=== PATIENT | male | born 1940 | race Caucasian/White ===

== ENCOUNTER 2022-06-22 13:45 | Inpatient (IN) ==
[2022-06-22] MEDS ORDERED: MORPHINE 2 MG/1 ML SYRINGE IV STA ×2 (16:52→19:19)
[2022-06-22] MEDS ORDERED: ONDANSETRON 4 MG/2 ML VIAL IV STA (16:52)
[2022-06-22] MEDS ORDERED: SODIUM CHLORIDE 0.9% 1,000 ML IV STA (16:52)
[2022-06-22 17:46] LABS: Basophils % 0.1 % (0.0-0.8); Hematocrit 43.9 VOL% (42.0-52.0); Hemoglobin 14.6 GM/DL (14.0-18.0); Immature Granulocytes % 0.5 %; Immature Granulocytes Absolute 0.07 #; Lymphocytes # 0.7 10*3/uL (1.4-4.0); Lymphocytes % 4.7 % (21.2-54.2); Mean Corpuscular HGB Conc 33.3 GM/DL (32-36); Mean Corpuscular Volume 91.6 FL (87-102); Mean Platelet Volume 9.4 FL (9.6-12.0); Monocytes # 1.7 10*3/uL (0.11-0.8); Monocytes % 11.2 % (1.7-12.7); Neutrophils % 83.5 % (38.7-73.9); Platelet Count 260 T/CUMM (130-400); Red Blood Count 4.79 MC/CUMM (3.8-5.5); Red Cell Distribution Width 12.7 % (9.3-17.3); White Blood Count 14.8 T/CUMM (4-12)
[2022-06-22 18:07] LABS: Albumin 3.5 G/DL (3.4-5.0); Bilirubin,Total 3.9 MG/DL (0.20-1.00); Calcium 9.5 MG/DL (8.5-10.1); Osmolality,Calculated 272.4 MOS/KG (273-304); Potassium 4.4 MMOL/L (3.5-5.1); Total Protein 7.1 G/DL (6.4-8.2)
[2022-06-22 18:08] LABS: Lymphocytes 5 % (20-55); Platelet Estimate Normal
[2022-06-22 18:09] LABS: Total Cells Counted 100
[2022-06-22 19:01] LABS: Blood, Urine Negative (Negative); Glucose,Urine (UA) Negative (Negative); Hyaline Casts,Urine 1 /LPF (0-3); Ketones,Urine 5 mg/dL (Negative); Mucus,Urine Occasional /LPF (Occasional); Nitrite,Urine Negative (Negative); Protein,Urine 30 mg/dL (Negative); RBC,Urine 2 /HPF (0-4); Squamous Epithelial Cell,Urine Occasional /HPF (0-10); Urine Appearance Slightly Hazy (Clear); Urine Color Amber (Yellow); Urine Specific Gravity 1.016 (1.001-1.035)
[2022-06-22 19:02] LABS: Bilirubin,Urine Small mg/dL (Negative)
[2022-06-22] MEDS ORDERED: hydrALAZINE 20 MG/1 ML VIAL IV PRN (21:14)
[2022-06-22] MEDS ORDERED: MORPHINE 2 MG/1 ML SYRINGE IV PRN (21:14)
[2022-06-22] MEDS ORDERED: LACTULOSE 20 GM/30 ML UDCUP PO PRN (21:14)
[2022-06-22] MEDS ORDERED: NITROGLYCERIN SL 0.4 MG TABLET SL PRN (21:23)
[2022-06-22] MEDS ORDERED: SODIUM CHLORIDE 0.9% 1,000 ML IV SCH (21:30)
[2022-06-22] MEDS ORDERED: ENOXAPARIN 40 MG/0.4 ML SYRINGE SUBCUT SCH (22:00)
[2022-06-22] MEDS: levETIRAcetam 500 MG TABLET PO SCH (22:59)
[2022-06-22] MEDS: PHENobarbital 30 MG TABLET PO SCH (23:45)
[2022-06-23 04:44] LABS: Basophils % 0.2 % (0.0-0.8); Hematocrit 38.7 VOL% (42.0-52.0); Immature Granulocytes % 0.3 %; Immature Granulocytes Absolute 0.03 #; Lymphocytes # 1.7 10*3/uL (1.4-4.0); Lymphocytes % 16.6 % (21.2-54.2); Mean Corpuscular HGB Conc 33.6 GM/DL (32-36); Mean Corpuscular Volume 91.1 FL (87-102); Mean Platelet Volume 9.2 FL (9.6-12.0); Monocytes # 1.7 10*3/uL (0.11-0.8); Monocytes % 16.8 % (1.7-12.7); Neutrophils % 66.1 % (38.7-73.9); Platelet Count 212 T/CUMM (130-400); Red Blood Count 4.25 MC/CUMM (3.8-5.5); White Blood Count 10.1 T/CUMM (4-12)
[2022-06-23 05:01] LABS: Albumin 2.6 G/DL (3.4-5.0); Bilirubin,Total 4.1 MG/DL (0.20-1.00); Calcium 8.8 MG/DL (8.5-10.1); Osmolality,Calculated 273.8 MOS/KG (273-304); Potassium 3.9 MMOL/L (3.5-5.1); Risk Ratio 2.2; Total Protein 6.1 G/DL (6.4-8.2); VLDL Cholesterol 11.2 MG/DL
[2022-06-23 06:24] LABS: Lymphocytes 24 % (20-55); Platelet Estimate Normal; Total Cells Counted 100
[2022-06-23] MEDS: ASPIRIN EC 81 MG TABLET PO SCH (08:44)
[2022-06-23] MEDS: CITALOPRAM 40 MG TABLET PO SCH (08:44)
[2022-06-23] MEDS: MULTIVITAMIN (CENTRUM) TABLET PO SCH (08:44)
[2022-06-23] MEDS: ATORVASTATIN 40 MG TABLET PO SCH (08:45)
[2022-06-23] MEDS: MAGNESIUM OXIDE 400 MG TABLET PO SCH (08:45)
[2022-06-23] MEDS: OMEGA 3 ACID ETHYL ESTERS 1 GM CAPSULE PO SCH (08:45)
[2022-06-23] MEDS: levETIRAcetam 500 MG TABLET PO SCH ×2 (08:45→21:06)
[2022-06-23] MEDS: FOLIC ACID 1 MG TABLET PO SCH ×2 (08:45→21:06)
[2022-06-23] MEDS: lisinopriL 10 MG TABLET PO SCH (08:46)
[2022-06-23] MEDS: CHOLECALCIFEROL 1,000 UNIT TABLET PO SCH (08:46)
[2022-06-23] MEDS: PANTOPRAZOLE 40 MG TABLET PO SCH (08:46)
[2022-06-23] MEDS ORDERED: levETIRAcetam 500 MG TABLET PO SCH (09:00)
[2022-06-23] MEDS ORDERED: HYDROmorphone 1 MG/1 ML SYRINGE IV PRN (09:18)
[2022-06-23] MEDS: INSULIN LISPRO 100 UNIT/ML SUBCUT SCH ×4 (10:09→21:11)
[2022-06-23] MEDS: PHENobarbital 30 MG TABLET PO SCH ×5 (10:34→21:06)
[2022-06-23] MEDS: POTASSIUM CHLORIDE INJ 10 MEQ in LACTATED RINGERS 1,000 ML IV SCH ×2 (11:21→17:26)
[2022-06-23] MEDS: PIPERACILLIN/TAZOBACTAM 3,375 MG in SODIUM CHLORIDE 0.9% 100 ML IV SCH ×2 (12:51→21:06)
[2022-06-23] MEDS: LACTULOSE 20 GM/30 ML UDCUP PO SCH (21:07)
[2022-06-24] MEDS: POTASSIUM CHLORIDE INJ 10 MEQ in LACTATED RINGERS 1,000 ML IV SCH ×2 (03:22→17:54)
[2022-06-24] MEDS: PIPERACILLIN/TAZOBACTAM 3,375 MG in SODIUM CHLORIDE 0.9% 100 ML IV SCH ×3 (04:10→20:52)
[2022-06-24 06:25] LABS: Basophils % 0.2 % (0.0-0.8); Hematocrit 42.6 VOL% (42.0-52.0); Hemoglobin 13.7 GM/DL (14.0-18.0); Immature Granulocytes % 0.3 %; Immature Granulocytes Absolute 0.03 #; Lymphocytes # 1.8 10*3/uL (1.4-4.0); Lymphocytes % 19.3 % (21.2-54.2); Mean Corpuscular HGB Conc 32.2 GM/DL (32-36); Mean Corpuscular Volume 92.8 FL (87-102); Mean Platelet Volume 9.6 FL (9.6-12.0); Monocytes % 11.1 % (1.7-12.7); Neutrophils % 69.1 % (38.7-73.9); Platelet Count 240 T/CUMM (130-400); Red Blood Count 4.59 MC/CUMM (3.8-5.5); Red Cell Distribution Width 12.9 % (9.3-17.3); White Blood Count 9.4 T/CUMM (4-12)
[2022-06-24 06:38] LABS: Albumin 2.8 G/DL (3.4-5.0); Bilirubin,Total 4.3 MG/DL (0.20-1.00); Calcium 9.2 MG/DL (8.5-10.1); Osmolality,Calculated 273.7 MOS/KG (273-304); Potassium 4.2 MMOL/L (3.5-5.1); Total Protein 6.7 G/DL (6.4-8.2)
[2022-06-24] MEDS: INSULIN LISPRO 100 UNIT/ML SUBCUT SCH ×4 (08:02→20:53)
[2022-06-24] MEDS: levETIRAcetam 500 MG TABLET PO SCH ×2 (10:13→20:52)
[2022-06-24] MEDS: METOPROLOL SUCCINATE XL 25 MG TABLET PO SCH (10:13)
[2022-06-24] MEDS: lisinopriL 10 MG TABLET PO SCH (10:14)
[2022-06-24] MEDS: CITALOPRAM 40 MG TABLET PO SCH (10:14)
[2022-06-24] MEDS: PHENobarbital 30 MG TABLET PO SCH ×4 (10:14→20:51)
[2022-06-24] MEDS: LACTULOSE 20 GM/30 ML UDCUP PO SCH ×2 (11:14→20:51)
[2022-06-24] MEDS: FOLIC ACID 1 MG TABLET PO SCH ×2 (11:14→20:52)
[2022-06-24] MEDS: MULTIVITAMIN (CENTRUM) TABLET PO SCH (11:14)
[2022-06-24] MEDS: ASPIRIN EC 81 MG TABLET PO SCH (11:14)
[2022-06-24] MEDS: OMEGA 3 ACID ETHYL ESTERS 1 GM CAPSULE PO SCH (11:15)
[2022-06-24] MEDS: PANTOPRAZOLE 40 MG TABLET PO SCH (11:15)
[2022-06-24] MEDS: CHOLECALCIFEROL 1,000 UNIT TABLET PO SCH (11:15)
[2022-06-24] MEDS: ATORVASTATIN 40 MG TABLET PO SCH (11:15)
[2022-06-24] MEDS: MAGNESIUM OXIDE 400 MG TABLET PO SCH (11:15)
[2022-06-25] MEDS: PIPERACILLIN/TAZOBACTAM 3,375 MG in SODIUM CHLORIDE 0.9% 100 ML IV SCH ×3 (05:06→20:57)
[2022-06-25 06:56] LABS: Basophils % 0.1 % (0.0-0.8); Hematocrit 39.7 VOL% (42.0-52.0); Hemoglobin 13.2 GM/DL (14.0-18.0); Immature Granulocytes % 0.4 %; Immature Granulocytes Absolute 0.03 #; Lymphocytes # 1.6 10*3/uL (1.4-4.0); Lymphocytes % 19.9 % (21.2-54.2); Mean Corpuscular HGB Conc 33.2 GM/DL (32-36); Mean Corpuscular Volume 92.5 FL (87-102); Mean Platelet Volume 9.5 FL (9.6-12.0); Monocytes # 0.9 10*3/uL (0.11-0.8); Monocytes % 10.7 % (1.7-12.7); Neutrophils % 68.9 % (38.7-73.9); Platelet Count 235 T/CUMM (130-400); Red Blood Count 4.29 MC/CUMM (3.8-5.5); Red Cell Distribution Width 12.9 % (9.3-17.3)
[2022-06-25 07:04] LABS: PT Patient Result 11.5 SECS (10.1-12.1)
[2022-06-25 07:18] LABS: Albumin 2.6 G/DL (3.4-5.0); Bilirubin,Total 2.1 MG/DL (0.20-1.00); Osmolality,Calculated 273.7 MOS/KG (273-304); Potassium 3.7 MMOL/L (3.5-5.1); Total Protein 6.6 G/DL (6.4-8.2)
[2022-06-25] MEDS ORDERED: INDOMETHACIN SUPP 50 MG SUPP RECTAL ONE (08:00)
[2022-06-25] MEDS: INSULIN LISPRO 100 UNIT/ML SUBCUT SCH ×4 (08:17→21:01)
[2022-06-25] MEDS ORDERED: fentaNYL 100 MCG/2 ML VIAL ONE (08:26)
[2022-06-25] MEDS: LACTATED RINGERS 1,000 ML IV SCH (08:41)
[2022-06-25] MEDS ORDERED: ePHEDrine 50 MG/ML VIAL ONE (09:41)
[2022-06-25] MEDS ORDERED: ROCURONIUM 50 MG/5 ML VIAL IV ONE (09:48)
[2022-06-25] MEDS ORDERED: propofoL 200 MG/20 ML VIAL IV ONE (09:48)
[2022-06-25] MEDS ORDERED: LIDOCAINE 2% 5 ML VIAL ONE (09:48)
[2022-06-25] MEDS ORDERED: SUCCINYLCHOLINE 200 MG/10 ML VIAL ONE (09:48)
[2022-06-25] MEDS ORDERED: SEVOFLURANE 1 UNIT/15 MINUTE INH ONE (09:48)
[2022-06-25] MEDS ORDERED: PHENYLEPHRINE 1 MG/10 ML SYRINGE IV ONE (09:48)
[2022-06-25] MEDS ORDERED: NEOSTIGMINE 10 MG/10 ML VIAL ONE (10:03)
[2022-06-25] MEDS ORDERED: GLYCOPYRROLATE 0.4 MG/2 ML VIAL ONE ×2 (10:09→10:41)
[2022-06-25] MEDS: levETIRAcetam 500 MG TABLET PO SCH ×2 (10:59→20:56)
[2022-06-25] MEDS: PHENobarbital 30 MG TABLET PO SCH ×5 (10:59→20:56)
[2022-06-25] MEDS: LACTULOSE 20 GM/30 ML UDCUP PO SCH ×2 (10:59→20:55)
[2022-06-25] MEDS: FOLIC ACID 1 MG TABLET PO SCH ×2 (10:59→20:56)
[2022-06-25] MEDS: OMEGA 3 ACID ETHYL ESTERS 1 GM CAPSULE PO SCH (11:29)
[2022-06-25] MEDS: MULTIVITAMIN (CENTRUM) TABLET PO SCH (11:29)
[2022-06-25] MEDS: PANTOPRAZOLE 40 MG TABLET PO SCH (11:29)
[2022-06-25] MEDS: CITALOPRAM 40 MG TABLET PO SCH (11:29)
[2022-06-25] MEDS: lisinopriL 10 MG TABLET PO SCH (11:29)
[2022-06-25] MEDS: ATORVASTATIN 40 MG TABLET PO SCH (11:29)
[2022-06-25] MEDS: ASPIRIN EC 81 MG TABLET PO SCH (11:29)
[2022-06-25] MEDS: MAGNESIUM OXIDE 400 MG TABLET PO SCH (11:29)
[2022-06-25] MEDS: CHOLECALCIFEROL 1,000 UNIT TABLET PO SCH (11:29)
[2022-06-25] MEDS ORDERED: GLUCAGON 1 MG VIAL IM PRN (11:47)
[2022-06-25] MEDS ORDERED: DEXTROSE 10% 250 ML BAG IV PRN (11:47)
[2022-06-26 04:41] LABS: Basophils % 0.4 % (0.0-0.8); Hematocrit 39.8 VOL% (42.0-52.0); Hemoglobin 13.6 GM/DL (14.0-18.0); Immature Granulocytes % 0.3 %; Immature Granulocytes Absolute 0.02 #; Lymphocytes # 1.7 10*3/uL (1.4-4.0); Lymphocytes % 22.9 % (21.2-54.2); Mean Corpuscular HGB Conc 34.2 GM/DL (32-36); Mean Corpuscular Volume 92.3 FL (87-102); Mean Platelet Volume 9.7 FL (9.6-12.0); Monocytes # 0.9 10*3/uL (0.11-0.8); Monocytes % 11.4 % (1.7-12.7); Platelet Count 253 T/CUMM (130-400); Red Blood Count 4.31 MC/CUMM (3.8-5.5); Red Cell Distribution Width 12.7 % (9.3-17.3); White Blood Count 7.5 T/CUMM (4-12)
[2022-06-26 05:04] LABS: Albumin 2.5 G/DL (3.4-5.0); Bilirubin,Total 1.2 MG/DL (0.20-1.00); Calcium 8.5 MG/DL (8.5-10.1); Osmolality,Calculated 283.1 MOS/KG (273-304); Total Protein 6.1 G/DL (6.4-8.2)
[2022-06-26] MEDS: PIPERACILLIN/TAZOBACTAM 3,375 MG in SODIUM CHLORIDE 0.9% 100 ML IV SCH ×2 (05:25→16:18)
[2022-06-26] MEDS ORDERED: INDOCYANINE GREEN 25 MG VIAL IV ONE (06:00)
[2022-06-26] MEDS: LACTATED RINGERS 1,000 ML IV SCH (07:10)
[2022-06-26] MEDS: PHENobarbital 30 MG TABLET PO SCH ×4 (08:28→21:01)
[2022-06-26] MEDS: levETIRAcetam 500 MG TABLET PO SCH ×2 (08:28→21:01)
[2022-06-26] MEDS: METOPROLOL SUCCINATE XL 25 MG TABLET PO SCH (08:29)
[2022-06-26] MEDS: INSULIN LISPRO 100 UNIT/ML SUBCUT SCH ×4 (08:30→21:00)
[2022-06-26] MEDS ORDERED: fentaNYL 100 MCG/2 ML VIAL ONE ×3 (09:17→11:21)
[2022-06-26] MEDS ORDERED: ePHEDrine 50 MG/ML VIAL ONE (10:07)
[2022-06-26] MEDS ORDERED: SEVOFLURANE 1 UNIT/15 MINUTE INH ONE (12:11)
[2022-06-26] MEDS ORDERED: propofoL 200 MG/20 ML VIAL IV ONE (12:11)
[2022-06-26] MEDS ORDERED: ONDANSETRON 4 MG/2 ML VIAL ONE (12:11)
[2022-06-26] MEDS ORDERED: ROCURONIUM 50 MG/5 ML VIAL IV ONE (12:11)
[2022-06-26] MEDS ORDERED: LIDOCAINE 2% 5 ML VIAL ONE (12:11)
[2022-06-26] MEDS ORDERED: LACTATED RINGERS 1,000 ML IV ONE (12:12)
[2022-06-26] MEDS ORDERED: SUGAMMADEX 200 MG/2 ML VIAL IV ONE (12:14)
[2022-06-26] MEDS ORDERED: METOPROLOL TARTRATE 5 MG/5 ML VIAL IV ONE (12:22)
[2022-06-26] MEDS: CITALOPRAM 40 MG TABLET PO SCH (12:40)
[2022-06-26] MEDS: ASPIRIN EC 81 MG TABLET PO SCH (12:40)
[2022-06-26] MEDS: MULTIVITAMIN (CENTRUM) TABLET PO SCH (12:40)
[2022-06-26] MEDS: LACTULOSE 20 GM/30 ML UDCUP PO SCH ×2 (12:40→21:01)
[2022-06-26] MEDS: FOLIC ACID 1 MG TABLET PO SCH ×2 (12:41→21:01)
[2022-06-26] MEDS: ATORVASTATIN 40 MG TABLET PO SCH (12:41)
[2022-06-26] MEDS: OMEGA 3 ACID ETHYL ESTERS 1 GM CAPSULE PO SCH (12:41)
[2022-06-26] MEDS: PANTOPRAZOLE 40 MG TABLET PO SCH (12:42)
[2022-06-26] MEDS: CHOLECALCIFEROL 1,000 UNIT TABLET PO SCH (12:42)
[2022-06-26] MEDS: MAGNESIUM OXIDE 400 MG TABLET PO SCH (12:42)
[2022-06-26] MEDS: lisinopriL 10 MG TABLET PO SCH (12:42)
[2022-06-26] MEDS: HYDROmorphone 1 MG/1 ML SYRINGE IV PRN ×3 (12:55→17:24)
[2022-06-26] MEDS: ONDANSETRON 4 MG/2 ML VIAL IV PRN ×2 (12:56→17:21)
[2022-06-26] MEDS ORDERED: ROPIVACAINE 0.5% 30 ML VIAL ONE (13:04)
[2022-06-26] MEDS ORDERED: LIDOCAINE 50 MG/5 ML SYRINGE ONE (13:08)
[2022-06-26] MEDS ORDERED: ONDANSETRON 4 MG/2 ML VIAL IV PRN (13:09)
[2022-06-26] MEDS ORDERED: LACTATED RINGERS 1,000 ML IV SCH (13:30)
[2022-06-26] MEDS ORDERED: MEPERIDINE 25 MG/1 ML VIAL ONE (13:49)
[2022-06-26] MEDS ORDERED: MEPERIDINE 25 MG/1 ML VIAL IV PRN (13:52)
[2022-06-27] MEDS: PIPERACILLIN/TAZOBACTAM 3,375 MG in SODIUM CHLORIDE 0.9% 100 ML IV SCH ×3 (01:19→16:11)
[2022-06-27] MEDS: HYDROmorphone 1 MG/1 ML SYRINGE IV PRN ×3 (06:01→14:29)
[2022-06-27 08:07] LABS: Basophils % 0.2 % (0.0-0.8); Hemoglobin 12.7 GM/DL (14.0-18.0); Immature Granulocytes % 0.4 %; Immature Granulocytes Absolute 0.04 #; Lymphocytes # 1.7 10*3/uL (1.4-4.0); Mean Corpuscular HGB Conc 32.6 GM/DL (32-36); Mean Corpuscular Volume 94.2 FL (87-102); Mean Platelet Volume 9.6 FL (9.6-12.0); Monocytes # 1.9 10*3/uL (0.11-0.8); Monocytes % 17.4 % (1.7-12.7); Platelet Count 285 T/CUMM (130-400); Red Blood Count 4.14 MC/CUMM (3.8-5.5); Red Cell Distribution Width 13.2 % (9.3-17.3); White Blood Count 10.7 T/CUMM (4-12)
[2022-06-27 08:25] LABS: Albumin 2.5 G/DL (3.4-5.0); Bilirubin,Total 1.3 MG/DL (0.20-1.00); Calcium 8.8 MG/DL (8.5-10.1); Osmolality,Calculated 285.3 MOS/KG (273-304); Potassium 4.7 MMOL/L (3.5-5.1); Total Protein 6.3 G/DL (6.4-8.2)
[2022-06-27 08:27] LABS: Atypical Lymphocytes Few; Hypochromia Slight; Lymphocytes 18 % (20-55); Total Cells Counted 100
[2022-06-27 08:28] LABS: Microcytosis Slight
[2022-06-27] MEDS: INSULIN LISPRO 100 UNIT/ML SUBCUT SCH ×4 (09:02→21:51)
[2022-06-27] MEDS: OMEGA 3 ACID ETHYL ESTERS 1 GM CAPSULE PO SCH (09:03)
[2022-06-27] MEDS: levETIRAcetam 500 MG TABLET PO SCH ×2 (09:03→20:39)
[2022-06-27] MEDS: MAGNESIUM OXIDE 400 MG TABLET PO SCH (09:04)
[2022-06-27] MEDS: PANTOPRAZOLE 40 MG TABLET PO SCH (09:04)
[2022-06-27] MEDS: CITALOPRAM 40 MG TABLET PO SCH (09:05)
[2022-06-27] MEDS: CHOLECALCIFEROL 1,000 UNIT TABLET PO SCH (09:05)
[2022-06-27] MEDS: MULTIVITAMIN (CENTRUM) TABLET PO SCH (09:05)
[2022-06-27] MEDS: PHENobarbital 30 MG TABLET PO SCH ×4 (09:06→20:39)
[2022-06-27] MEDS: FOLIC ACID 1 MG TABLET PO SCH ×2 (09:06→20:39)
[2022-06-27] MEDS: ATORVASTATIN 40 MG TABLET PO SCH (09:06)
[2022-06-27] MEDS: LACTULOSE 20 GM/30 ML UDCUP PO SCH ×2 (09:07→20:39)
[2022-06-27 10:27] LABS: Bilirubin,Urine Negative (Negative); Blood, Urine Negative (Negative); Glucose,Urine (UA) Negative (Negative); Ketones,Urine 20 mg/dL (Negative); Nitrite,Urine Negative (Negative); Protein,Urine Negative (Negative); RBC,Urine 1 /HPF (0-4); Squamous Epithelial Cell,Urine Occasional /HPF (0-10); Urine Appearance Slightly Hazy (Clear); Urine Color Amber (Yellow); Urine Specific Gravity 1.019 (1.001-1.035); Urine Urobilinogen < 2.0 eU/dL (<2.0)
[2022-06-27] MEDS: LACTATED RINGERS 1,000 ML IV SCH (10:46)
[2022-06-27] MEDS: TAMSULOSIN 0.4 MG CAPSULE PO SCH (10:47)
[2022-06-27] MEDS: ONDANSETRON 4 MG/2 ML VIAL IV PRN (14:27)
[2022-06-28] MEDS: PIPERACILLIN/TAZOBACTAM 3,375 MG in SODIUM CHLORIDE 0.9% 100 ML IV SCH ×3 (01:11→16:42)
[2022-06-28] MEDS: HYDROmorphone 1 MG/1 ML SYRINGE IV PRN (04:32)
[2022-06-28 08:14] LABS: Basophils % 0.2 % (0.0-0.8); Hematocrit 32.1 VOL% (42.0-52.0); Hemoglobin 10.4 GM/DL (14.0-18.0); Immature Granulocytes % 0.4 %; Immature Granulocytes Absolute 0.05 #; Lymphocytes # 1.8 10*3/uL (1.4-4.0); Lymphocytes % 15.5 % (21.2-54.2); Mean Corpuscular HGB Conc 32.4 GM/DL (32-36); Mean Corpuscular Volume 95.8 FL (87-102); Mean Platelet Volume 9.5 FL (9.6-12.0); Monocytes # 1.5 10*3/uL (0.11-0.8); Monocytes % 12.2 % (1.7-12.7); Neutrophils % 71.7 % (38.7-73.9); Platelet Count 219 T/CUMM (130-400); Red Blood Count 3.35 MC/CUMM (3.8-5.5); Red Cell Distribution Width 12.9 % (9.3-17.3); White Blood Count 11.8 T/CUMM (4-12)
[2022-06-28 08:55] LABS: Albumin 2.3 G/DL (3.4-5.0); Osmolality,Calculated 281.5 MOS/KG (273-304); Potassium 4.3 MMOL/L (3.5-5.1); Total Protein 5.4 G/DL (6.4-8.2)
[2022-06-28] MEDS: INSULIN LISPRO 100 UNIT/ML SUBCUT SCH ×4 (09:30→20:35)
[2022-06-28] MEDS: PHENobarbital 30 MG TABLET PO SCH ×4 (09:37→20:35)
[2022-06-28] MEDS: TAMSULOSIN 0.4 MG CAPSULE PO SCH (09:38)
[2022-06-28] MEDS: FOLIC ACID 1 MG TABLET PO SCH ×2 (09:38→20:35)
[2022-06-28] MEDS: MAGNESIUM OXIDE 400 MG TABLET PO SCH (09:38)
[2022-06-28] MEDS: MULTIVITAMIN (CENTRUM) TABLET PO SCH (09:38)
[2022-06-28] MEDS: PANTOPRAZOLE 40 MG TABLET PO SCH (09:39)
[2022-06-28] MEDS: CHOLECALCIFEROL 1,000 UNIT TABLET PO SCH (09:39)
[2022-06-28] MEDS: ATORVASTATIN 40 MG TABLET PO SCH (09:39)
[2022-06-28] MEDS: levETIRAcetam 500 MG TABLET PO SCH ×2 (09:40→20:35)
[2022-06-28] MEDS: LACTULOSE 20 GM/30 ML UDCUP PO SCH ×2 (09:40→20:35)
[2022-06-28] MEDS: OMEGA 3 ACID ETHYL ESTERS 1 GM CAPSULE PO SCH (09:40)
[2022-06-28] MEDS: METOPROLOL SUCCINATE XL 25 MG TABLET PO SCH (09:43)
[2022-06-28] MEDS: CITALOPRAM 40 MG TABLET PO SCH (09:48)
[2022-06-28] MEDS: LACTATED RINGERS 1,000 ML IV SCH ×3 (12:46→16:53)
[2022-06-28] MEDS ORDERED: SIMETHICONE CHEW 80 MG TABLET PO PRN (15:49)
[2022-06-28] MEDS ORDERED: ZALEPLON 5 MG CAPSULE PO ONE (22:46)
[2022-06-29] MEDS: PIPERACILLIN/TAZOBACTAM 3,375 MG in SODIUM CHLORIDE 0.9% 100 ML IV SCH ×3 (01:06→16:46)
[2022-06-29] MEDS: LACTATED RINGERS 1,000 ML IV SCH (02:20)
[2022-06-29 05:23] LABS: Basophils % 0.2 % (0.0-0.8); Hematocrit 28.2 VOL% (42.0-52.0); Hemoglobin 9.1 GM/DL (14.0-18.0); Immature Granulocytes % 0.5 %; Immature Granulocytes Absolute 0.05 #; Lymphocytes # 1.7 10*3/uL (1.4-4.0); Lymphocytes % 17.1 % (21.2-54.2); Mean Corpuscular HGB Conc 32.3 GM/DL (32-36); Monocytes # 1.2 10*3/uL (0.11-0.8); Monocytes % 11.3 % (1.7-12.7); Neutrophils % 70.9 % (38.7-73.9); Platelet Count 216 T/CUMM (130-400); Red Cell Distribution Width 12.7 % (9.3-17.3); White Blood Count 10.2 T/CUMM (4-12)
[2022-06-29 05:45] LABS: Albumin 2.1 G/DL (3.4-5.0); Calcium 8.1 MG/DL (8.5-10.1); Osmolality,Calculated 279.5 MOS/KG (273-304); Potassium 3.6 MMOL/L (3.5-5.1); Total Protein 5.6 G/DL (6.4-8.2)
[2022-06-29] MEDS: INSULIN LISPRO 100 UNIT/ML SUBCUT SCH ×4 (10:24→20:35)
[2022-06-29] MEDS: PHENobarbital 30 MG TABLET PO SCH ×4 (10:24→20:15)
[2022-06-29] MEDS: LACTULOSE 20 GM/30 ML UDCUP PO SCH ×2 (10:24→20:15)
[2022-06-29] MEDS: METOPROLOL SUCCINATE XL 25 MG TABLET PO SCH (10:25)
[2022-06-29] MEDS: MULTIVITAMIN (CENTRUM) TABLET PO SCH (10:25)
[2022-06-29] MEDS: CHOLECALCIFEROL 1,000 UNIT TABLET PO SCH (10:25)
[2022-06-29] MEDS: CITALOPRAM 40 MG TABLET PO SCH (10:25)
[2022-06-29] MEDS: ATORVASTATIN 40 MG TABLET PO SCH (10:25)
[2022-06-29] MEDS: TAMSULOSIN 0.4 MG CAPSULE PO SCH (10:25)
[2022-06-29] MEDS: PANTOPRAZOLE 40 MG TABLET PO SCH (10:26)
[2022-06-29] MEDS: OMEGA 3 ACID ETHYL ESTERS 1 GM CAPSULE PO SCH (10:26)
[2022-06-29] MEDS: MAGNESIUM OXIDE 400 MG TABLET PO SCH (10:26)
[2022-06-29] MEDS: levETIRAcetam 500 MG TABLET PO SCH ×2 (10:26→20:14)
[2022-06-29] MEDS: FOLIC ACID 1 MG TABLET PO SCH ×2 (10:26→20:15)
[2022-06-30] MEDS: PIPERACILLIN/TAZOBACTAM 3,375 MG in SODIUM CHLORIDE 0.9% 100 ML IV SCH ×3 (01:54→18:03)
[2022-06-30] MEDS: LACTATED RINGERS 1,000 ML IV SCH ×3 (02:42→10:29)
[2022-06-30 06:49] LABS: Basophils % 0.2 % (0.0-0.8); Hematocrit 28.4 VOL% (42.0-52.0); Hemoglobin 9.2 GM/DL (14.0-18.0); Immature Granulocytes % 0.5 %; Immature Granulocytes Absolute 0.05 #; Lymphocytes # 1.5 10*3/uL (1.4-4.0); Lymphocytes % 14.9 % (21.2-54.2); Mean Corpuscular HGB Conc 32.4 GM/DL (32-36); Mean Platelet Volume 9.9 FL (9.6-12.0); Monocytes % 9.8 % (1.7-12.7); Neutrophils % 74.6 % (38.7-73.9); Platelet Count 246 T/CUMM (130-400); Red Blood Count 3.02 MC/CUMM (3.8-5.5); Red Cell Distribution Width 12.8 % (9.3-17.3); White Blood Count 10.3 T/CUMM (4-12)
[2022-06-30 07:00] LABS: Albumin 2.1 G/DL (3.4-5.0); Bilirubin,Total 0.9 MG/DL (0.20-1.00); Calcium 7.9 MG/DL (8.5-10.1); Osmolality,Calculated 277.5 MOS/KG (273-304); Potassium 3.8 MMOL/L (3.5-5.1); Total Protein 5.7 G/DL (6.4-8.2)
[2022-06-30] MEDS: INSULIN LISPRO 100 UNIT/ML SUBCUT SCH ×4 (07:40→21:16)
[2022-06-30] MEDS: TAMSULOSIN 0.4 MG CAPSULE PO SCH (10:27)
[2022-06-30] MEDS: MULTIVITAMIN (CENTRUM) TABLET PO SCH (10:27)
[2022-06-30] MEDS: levETIRAcetam 500 MG TABLET PO SCH ×2 (10:27→21:16)
[2022-06-30] MEDS: FOLIC ACID 1 MG TABLET PO SCH ×2 (10:27→21:15)
[2022-06-30] MEDS: CITALOPRAM 40 MG TABLET PO SCH (10:27)
[2022-06-30] MEDS: PANTOPRAZOLE 40 MG TABLET PO SCH (10:28)
[2022-06-30] MEDS: METOPROLOL SUCCINATE XL 25 MG TABLET PO SCH (10:28)
[2022-06-30] MEDS: ATORVASTATIN 40 MG TABLET PO SCH (10:28)
[2022-06-30] MEDS: OMEGA 3 ACID ETHYL ESTERS 1 GM CAPSULE PO SCH (10:28)
[2022-06-30] MEDS: MAGNESIUM OXIDE 400 MG TABLET PO SCH (10:28)
[2022-06-30] MEDS: CHOLECALCIFEROL 1,000 UNIT TABLET PO SCH (10:28)
[2022-06-30] MEDS: PHENobarbital 30 MG TABLET PO SCH ×4 (10:28→21:16)
[2022-06-30] MEDS: LACTULOSE 20 GM/30 ML UDCUP PO SCH ×3 (10:29→21:15)
[2022-07-01] MEDS: PIPERACILLIN/TAZOBACTAM 3,375 MG in SODIUM CHLORIDE 0.9% 100 ML IV SCH ×3 (01:12→18:32)
[2022-07-01 06:25] LABS: Basophils % 0.3 % (0.0-0.8); Hematocrit 29.2 VOL% (42.0-52.0); Hemoglobin 9.5 GM/DL (14.0-18.0); Immature Granulocytes % 0.5 %; Immature Granulocytes Absolute 0.05 #; Lymphocytes # 1.8 10*3/uL (1.4-4.0); Lymphocytes % 16.9 % (21.2-54.2); Mean Corpuscular HGB Conc 32.5 GM/DL (32-36); Mean Corpuscular Volume 93.3 FL (87-102); Monocytes # 1.1 10*3/uL (0.11-0.8); Monocytes % 10.7 % (1.7-12.7); Neutrophils % 71.6 % (38.7-73.9); Platelet Count 286 T/CUMM (130-400); Red Blood Count 3.13 MC/CUMM (3.8-5.5); White Blood Count 10.4 T/CUMM (4-12)
[2022-07-01 06:41] LABS: Albumin 2.1 G/DL (3.4-5.0); Bilirubin,Total 0.8 MG/DL (0.20-1.00); Osmolality,Calculated 280.3 MOS/KG (273-304); Potassium 3.6 MMOL/L (3.5-5.1); Total Protein 5.9 G/DL (6.4-8.2)
[2022-07-01] MEDS: INSULIN LISPRO 100 UNIT/ML SUBCUT SCH ×4 (07:40→22:04)
[2022-07-01] MEDS: CITALOPRAM 40 MG TABLET PO SCH (09:31)
[2022-07-01] MEDS: TAMSULOSIN 0.4 MG CAPSULE PO SCH (09:31)
[2022-07-01] MEDS: METOPROLOL SUCCINATE XL 25 MG TABLET PO SCH (09:31)
[2022-07-01] MEDS: MAGNESIUM OXIDE 400 MG TABLET PO SCH (09:31)
[2022-07-01] MEDS: CHOLECALCIFEROL 1,000 UNIT TABLET PO SCH (09:31)
[2022-07-01] MEDS: MULTIVITAMIN (CENTRUM) TABLET PO SCH (09:31)
[2022-07-01] MEDS: levETIRAcetam 500 MG TABLET PO SCH ×2 (09:31→21:53)
[2022-07-01] MEDS: LACTULOSE 20 GM/30 ML UDCUP PO SCH ×3 (09:31→21:53)
[2022-07-01] MEDS: ATORVASTATIN 40 MG TABLET PO SCH (09:31)
[2022-07-01] MEDS: OMEGA 3 ACID ETHYL ESTERS 1 GM CAPSULE PO SCH (09:32)
[2022-07-01] MEDS: PANTOPRAZOLE 40 MG TABLET PO SCH (09:32)
[2022-07-01] MEDS: POLYETHYLENE GLYCOL POWDER 17 GM PACK PO SCH (09:32)
[2022-07-01] MEDS: FOLIC ACID 1 MG TABLET PO SCH ×2 (09:32→21:53)
[2022-07-01] MEDS: PHENobarbital 30 MG TABLET PO SCH ×4 (09:32→21:53)
[2022-07-01] MEDS ORDERED: TUBERCULIN SKIN TEST 0.1 ML SYRINGE INTRADERM ONE (10:30)
[2022-07-01] MEDS ORDERED: ENOXAPARIN 40 MG/0.4 ML SYRINGE SUBCUT SCH (16:00)
[2022-07-01] MEDS: ONDANSETRON 4 MG/2 ML VIAL IV PRN (23:21)
[2022-07-02] MEDS: PIPERACILLIN/TAZOBACTAM 3,375 MG in SODIUM CHLORIDE 0.9% 100 ML IV SCH ×2 (01:57→09:59)
[2022-07-02 05:17] LABS: Basophils % 0.4 % (0.0-0.8); Hematocrit 30.9 VOL% (42.0-52.0); Immature Granulocytes % 0.4 %; Immature Granulocytes Absolute 0.04 #; Lymphocytes # 2.2 10*3/uL (1.4-4.0); Lymphocytes % 22.2 % (21.2-54.2); Mean Corpuscular HGB Conc 32.4 GM/DL (32-36); Mean Corpuscular Volume 94.5 FL (87-102); Mean Platelet Volume 9.9 FL (9.6-12.0); Monocytes # 1.1 10*3/uL (0.11-0.8); Monocytes % 10.9 % (1.7-12.7); Neutrophils % 66.1 % (38.7-73.9); Platelet Count 318 T/CUMM (130-400); Red Blood Count 3.27 MC/CUMM (3.8-5.5); White Blood Count 9.7 T/CUMM (4-12)
[2022-07-02 05:40] LABS: Albumin 2.2 G/DL (3.4-5.0); Bilirubin,Total 0.7 MG/DL (0.20-1.00); Calcium 8.1 MG/DL (8.5-10.1); Potassium 3.7 MMOL/L (3.5-5.1); Total Protein 6.1 G/DL (6.4-8.2)
[2022-07-02] MEDS: INSULIN LISPRO 100 UNIT/ML SUBCUT SCH ×2 (09:57→12:51)
[2022-07-02] MEDS: TAMSULOSIN 0.4 MG CAPSULE PO SCH (09:57)
[2022-07-02] MEDS: MULTIVITAMIN (CENTRUM) TABLET PO SCH (09:57)
[2022-07-02] MEDS: CHOLECALCIFEROL 1,000 UNIT TABLET PO SCH (09:57)
[2022-07-02] MEDS: METOPROLOL SUCCINATE XL 25 MG TABLET PO SCH (09:57)
[2022-07-02] MEDS: OMEGA 3 ACID ETHYL ESTERS 1 GM CAPSULE PO SCH (09:57)
[2022-07-02] MEDS: levETIRAcetam 500 MG TABLET PO SCH (09:58)
[2022-07-02] MEDS: LACTULOSE 20 GM/30 ML UDCUP PO SCH (09:58)
[2022-07-02] MEDS: CITALOPRAM 40 MG TABLET PO SCH (09:58)
[2022-07-02] MEDS: PHENobarbital 30 MG TABLET PO SCH ×2 (09:58→13:41)
[2022-07-02] MEDS: POLYETHYLENE GLYCOL POWDER 17 GM PACK PO SCH (09:58)
[2022-07-02] MEDS: MAGNESIUM OXIDE 400 MG TABLET PO SCH (09:58)
[2022-07-02] MEDS: PANTOPRAZOLE 40 MG TABLET PO SCH (09:58)
[2022-07-02] MEDS: ATORVASTATIN 40 MG TABLET PO SCH (09:58)
[2022-07-02] MEDS: FOLIC ACID 1 MG TABLET PO SCH (09:58)
[2022-07-02 11:58] VITALS: BP 145/65
== END 2022-07-02 13:46 | disposition swing bed (61) | DRG 414 ==
LOC: N.ED 13:45 → SUATTDRO 21:10 → N.EDINP 21:10 → N.3E 06-23 08:46
PROVIDERS: ADMIT Hospitalist; ATTEND Internal Medicine
PROC: ERCPWSP (ICD-10-PCS; 2022-06-25 09:35)

== ENCOUNTER 2022-09-12 00:04 | Inpatient (IN) ==
[2022-09-12] MEDS ORDERED: SODIUM CHLORIDE 0.9% 1,000 ML IV STA (02:09)
[2022-09-12 02:46] LABS: Basophils % 0.1 % (0.0-0.8); Hematocrit 38.2 VOL% (42.0-52.0); Hemoglobin 12.7 GM/DL (14.0-18.0); Immature Granulocytes % 0.7 %; Immature Granulocytes Absolute 0.13 #; Lymphocytes # 1.4 10*3/uL (1.4-4.0); Lymphocytes % 7.6 % (21.2-54.2); Mean Corpuscular HGB Conc 33.2 GM/DL (32-36); Mean Corpuscular Volume 89.9 FL (87-102); Mean Platelet Volume 10.1 FL (9.6-12.0); Monocytes # 2.1 10*3/uL (0.11-0.8); Monocytes % 11.3 % (1.7-12.7); Neutrophils % 80.3 % (38.7-73.9); Platelet Count 183 T/CUMM (130-400); Red Blood Count 4.25 MC/CUMM (3.8-5.5); Red Cell Distribution Width 12.8 % (9.3-17.3); White Blood Count 18.9 T/CUMM (4-12)
[2022-09-12 02:52] LABS: Albumin 3.1 G/DL (3.4-5.0); Bilirubin,Total 0.5 MG/DL (0.20-1.00); Calcium 8.4 MG/DL (8.5-10.1); Potassium 3.3 MMOL/L (3.5-5.1); Total Protein 6.7 G/DL (6.4-8.2)
[2022-09-12] MEDS ORDERED: cefTRIAXone 1,000 MG in SODIUM CHLORIDE 0.9% 100 ML IV STA (02:58)
[2022-09-12] MEDS ORDERED: ALBUTEROL/IPRATROPIUM 3 ML NEB RESP TX STA (03:05)
[2022-09-12] MEDS ORDERED: GLUCAGON 1 MG VIAL IM PRN (03:08)
[2022-09-12] MEDS ORDERED: ONDANSETRON 4 MG/2 ML VIAL IV PRN (03:08)
[2022-09-12] MEDS ORDERED: NITROGLYCERIN SL 0.4 MG TABLET SL PRN (03:17)
[2022-09-12] MEDS ORDERED: DEXTROSE 10% 250 ML BAG IV PRN (03:22)
[2022-09-12] MEDS ORDERED: POTASSIUM CHLORIDE 20 MEQ TABLET PO ONE (04:24)
[2022-09-12] MEDS: ALBUTEROL 2.5 MG/3 ML NEB RESP TX SCH ×3 (06:50→18:50)
[2022-09-12] MEDS: INSULIN REGULAR 100 UNIT/ML SUBCUT SCH ×4 (07:43→22:31)
[2022-09-12] MEDS ORDERED: DICLOFENAC 1% GEL 100 GM TUBE TOP PRN (08:10)
[2022-09-12] MEDS: SODIUM CHLOR 0.9% KCL 20 MEQ 20 MEQ/1,000 ML BAG IV SCH (08:18)
[2022-09-12] MEDS: lisinopriL 10 MG TABLET PO SCH (08:20)
[2022-09-12] MEDS: sitaGLIPtin 100 MG TABLET PO SCH (08:20)
[2022-09-12] MEDS: CHOLECALCIFEROL 1,000 UNIT TABLET PO SCH (08:20)
[2022-09-12] MEDS: DOCUSATE SODIUM 100 MG CAPSULE PO SCH ×2 (08:20→21:30)
[2022-09-12] MEDS: MAGNESIUM OXIDE 400 MG TABLET PO SCH (08:20)
[2022-09-12] MEDS: ENOXAPARIN 40 MG/0.4 ML SYRINGE SUBCUT SCH (08:20)
[2022-09-12] MEDS: guaiFENesin/DM ER 600-30 MG TABLET PO SCH ×2 (08:21→21:32)
[2022-09-12] MEDS: FOLIC ACID 1 MG TABLET PO SCH ×2 (08:21→21:31)
[2022-09-12] MEDS: levETIRAcetam 500 MG TABLET PO SCH ×2 (08:21→21:31)
[2022-09-12] MEDS: PHENobarbital 30 MG TABLET PO SCH ×6 (08:21→21:32)
[2022-09-12] MEDS: MULTIVITAMIN (CENTRUM) TABLET PO SCH (08:21)
[2022-09-12] MEDS: TAMSULOSIN 0.4 MG CAPSULE PO SCH ×2 (08:22→21:31)
[2022-09-12] MEDS: OMEGA 3 ACID ETHYL ESTERS 1 GM CAPSULE PO SCH (08:22)
[2022-09-12] MEDS: METOPROLOL SUCCINATE XL 25 MG TABLET PO SCH (08:22)
[2022-09-12] MEDS: CITALOPRAM 40 MG TABLET PO SCH (08:22)
[2022-09-12] MEDS: PANTOPRAZOLE 40 MG TABLET PO SCH (08:22)
[2022-09-12] MEDS ORDERED: MAGNESIUM SULF RIDER 2 GM/50 ML PREMIX IV ONE (09:00)
[2022-09-12] MEDS ORDERED: TAMSULOSIN 0.4 MG CAPSULE PO SCH (09:00)
[2022-09-12 09:02] LABS: Mucus,Urine Few /LPF (Occasional); RBC,Urine 15-20 /HPF (0-4); Squamous Epithelial Cell,Urine Occasional /HPF (0-10); Urine Appearance Cloudy (Clear); Urine Color Yellow (Yellow)
[2022-09-12 09:03] LABS: Bilirubin,Urine Negative (Negative); Blood, Urine Moderate mg/dL (Negative); Glucose,Urine (UA) Negative (Negative); Ketones,Urine Negative (Negative); Nitrite,Urine Positive (Negative); Protein,Urine 100 mg/dL (Negative); Urine Specific Gravity 1.025 (1.001-1.035); Urine Urobilinogen 0.2 eU/dL (<2.0); Urine pH 5.5 (4.5-8.0)
[2022-09-12] MEDS: ASPIRIN EC 81 MG TABLET PO SCH (10:32)
[2022-09-12] MEDS: ACETAMINOPHEN 325 MG TABLET PO PRN (12:04)
[2022-09-12] MEDS ORDERED: GENTAMICIN INJ 420 MG in SODIUM CHLORIDE 0.9% 100 ML IV SCH (17:00)
[2022-09-12] MEDS: MELATONIN 3 MG TABLET PO SCH (21:31)
[2022-09-13] MEDS: SODIUM CHLOR 0.9% KCL 20 MEQ 20 MEQ/1,000 ML BAG IV SCH ×3 (00:24→23:20)
[2022-09-13] MEDS: ALBUTEROL 2.5 MG/3 ML NEB RESP TX SCH ×4 (00:25→20:40)
[2022-09-13 04:34] LABS: Basophils % 0.2 % (0.0-0.8); Hematocrit 37.2 VOL% (42.0-52.0); Hemoglobin 11.7 GM/DL (14.0-18.0); Immature Granulocytes % 2.6 %; Immature Granulocytes Absolute 0.62 #; Lymphocytes # 2.1 10*3/uL (1.4-4.0); Lymphocytes % 8.7 % (21.2-54.2); Mean Corpuscular HGB Conc 31.5 GM/DL (32-36); Mean Corpuscular Volume 92.5 FL (87-102); Mean Platelet Volume 9.8 FL (9.6-12.0); Monocytes # 2.2 10*3/uL (0.11-0.8); Monocytes % 9.4 % (1.7-12.7); Neutrophils % 79.1 % (38.7-73.9); Platelet Count 127 T/CUMM (130-400); Red Blood Count 4.02 MC/CUMM (3.8-5.5); Red Cell Distribution Width 13.2 % (9.3-17.3); White Blood Count 23.7 T/CUMM (4-12)
[2022-09-13 05:06] LABS: Band Neutrophils 2 % (0-10); Lymphocytes 8 % (20-55); Platelet Estimate Decreased; Total Cells Counted 100
[2022-09-13 05:07] LABS: Calcium 7.5 MG/DL (8.5-10.1); Osmolality,Calculated 270.4 MOS/KG (273-304); Potassium 3.5 MMOL/L (3.5-5.1); Thyroid Stimulating Hormone 1.12 uIU/ml (0.358-3.74)
[2022-09-13] MEDS: INSULIN REGULAR 100 UNIT/ML SUBCUT SCH ×4 (08:35→21:25)
[2022-09-13] MEDS ORDERED: cefTRIAXone 2,000 MG in SODIUM CHLORIDE 0.9% 100 ML IV SCH (09:00)
[2022-09-13] MEDS: PHENobarbital 30 MG TABLET PO SCH ×4 (10:28→21:25)
[2022-09-13] MEDS: guaiFENesin/DM ER 600-30 MG TABLET PO SCH ×2 (10:28→21:25)
[2022-09-13] MEDS: PANTOPRAZOLE 40 MG TABLET PO SCH (10:29)
[2022-09-13] MEDS: MULTIVITAMIN (CENTRUM) TABLET PO SCH (10:29)
[2022-09-13] MEDS: levETIRAcetam 500 MG TABLET PO SCH ×2 (10:29→21:25)
[2022-09-13] MEDS: CITALOPRAM 40 MG TABLET PO SCH (10:29)
[2022-09-13] MEDS: CHOLECALCIFEROL 1,000 UNIT TABLET PO SCH (10:29)
[2022-09-13] MEDS: OMEGA 3 ACID ETHYL ESTERS 1 GM CAPSULE PO SCH (10:29)
[2022-09-13] MEDS: sitaGLIPtin 100 MG TABLET PO SCH (10:29)
[2022-09-13] MEDS: TAMSULOSIN 0.4 MG CAPSULE PO SCH ×2 (10:30→21:25)
[2022-09-13] MEDS: ASPIRIN EC 81 MG TABLET PO SCH (10:30)
[2022-09-13] MEDS: FOLIC ACID 1 MG TABLET PO SCH ×2 (10:30→21:25)
[2022-09-13] MEDS: lisinopriL 10 MG TABLET PO SCH (10:30)
[2022-09-13] MEDS: ENOXAPARIN 40 MG/0.4 ML SYRINGE SUBCUT SCH (10:31)
[2022-09-13] MEDS: DOCUSATE SODIUM 100 MG CAPSULE PO SCH ×2 (10:31→21:25)
[2022-09-13] MEDS: MAGNESIUM OXIDE 400 MG TABLET PO SCH (10:32)
[2022-09-13] MEDS: MEROPENEM 500 MG in SODIUM CHLORIDE 0.9% 100 ML IV SCH ×2 (16:15→21:24)
[2022-09-13] MEDS ORDERED: PHENAZOPYRIDINE 95 MG TABLET PO PRN (16:37)
[2022-09-13] MEDS: MELATONIN 3 MG TABLET PO SCH (21:25)
[2022-09-13] MEDS: COLESTIPOL 1 GM TABLET PO SCH (22:28)
[2022-09-14] MEDS: ALBUTEROL 2.5 MG/3 ML NEB RESP TX SCH ×4 (00:36→19:08)
[2022-09-14] MEDS: MEROPENEM 500 MG in SODIUM CHLORIDE 0.9% 100 ML IV SCH ×4 (03:59→21:07)
[2022-09-14] MEDS ORDERED: SODIUM CHLORIDE 0.9% 100 ML IV ONE (04:09)
[2022-09-14 04:39] LABS: Basophils % 0.2 % (0.0-0.8); Hematocrit 36.1 VOL% (42.0-52.0); Hemoglobin 11.7 GM/DL (14.0-18.0); Immature Granulocytes % 1.2 %; Immature Granulocytes Absolute 0.23 #; Lymphocytes # 1.5 10*3/uL (1.4-4.0); Lymphocytes % 7.3 % (21.2-54.2); Mean Corpuscular HGB Conc 32.4 GM/DL (32-36); Mean Platelet Volume 9.7 FL (9.6-12.0); Monocytes # 1.8 10*3/uL (0.11-0.8); Monocytes % 8.9 % (1.7-12.7); Neutrophils % 82.4 % (38.7-73.9); Platelet Count 127 T/CUMM (130-400); Red Blood Count 4.01 MC/CUMM (3.8-5.5)
[2022-09-14 05:04] LABS: Calcium 8.1 MG/DL (8.5-10.1); Osmolality,Calculated 276.8 MOS/KG (273-304); Potassium 3.2 MMOL/L (3.5-5.1)
[2022-09-14] MEDS: DOCUSATE SODIUM 100 MG CAPSULE PO SCH ×2 (10:16→21:08)
[2022-09-14] MEDS: TAMSULOSIN 0.4 MG CAPSULE PO SCH ×2 (10:16→21:07)
[2022-09-14] MEDS: FOLIC ACID 1 MG TABLET PO SCH ×2 (10:16→21:07)
[2022-09-14] MEDS: MULTIVITAMIN (CENTRUM) TABLET PO SCH (10:16)
[2022-09-14] MEDS: sitaGLIPtin 100 MG TABLET PO SCH (10:16)
[2022-09-14] MEDS: INSULIN REGULAR 100 UNIT/ML SUBCUT SCH ×4 (10:16→21:27)
[2022-09-14] MEDS: CITALOPRAM 40 MG TABLET PO SCH (10:16)
[2022-09-14] MEDS: ASPIRIN EC 81 MG TABLET PO SCH (10:16)
[2022-09-14] MEDS: OMEGA 3 ACID ETHYL ESTERS 1 GM CAPSULE PO SCH (10:17)
[2022-09-14] MEDS: lisinopriL 10 MG TABLET PO SCH (10:17)
[2022-09-14] MEDS: MAGNESIUM OXIDE 400 MG TABLET PO SCH (10:17)
[2022-09-14] MEDS: PHENobarbital 30 MG TABLET PO SCH ×4 (10:17→21:08)
[2022-09-14] MEDS: levETIRAcetam 500 MG TABLET PO SCH ×2 (10:17→21:08)
[2022-09-14] MEDS: ENOXAPARIN 40 MG/0.4 ML SYRINGE SUBCUT SCH (10:17)
[2022-09-14] MEDS: guaiFENesin/DM ER 600-30 MG TABLET PO SCH ×2 (10:17→21:08)
[2022-09-14] MEDS: METOPROLOL SUCCINATE XL 25 MG TABLET PO SCH (10:18)
[2022-09-14] MEDS: PANTOPRAZOLE 40 MG TABLET PO SCH (10:18)
[2022-09-14] MEDS: COLESTIPOL 1 GM TABLET PO SCH ×2 (10:18→21:08)
[2022-09-14] MEDS: CHOLECALCIFEROL 1,000 UNIT TABLET PO SCH (10:18)
[2022-09-14] MEDS ORDERED: POTASSIUM CHLORIDE 20 MEQ TABLET PO ONE (13:19)
[2022-09-14] MEDS: SODIUM CHLOR 0.9% KCL 20 MEQ 20 MEQ/1,000 ML BAG IV SCH (13:38)
[2022-09-14] MEDS: ACETAMINOPHEN 325 MG TABLET PO PRN ×2 (15:07→21:07)
[2022-09-14] MEDS: PHENAZOPYRIDINE 95 MG TABLET PO SCH (17:43)
[2022-09-14] MEDS: IBUPROFEN 400 MG TABLET PO PRN (18:12)
[2022-09-14] MEDS: MELATONIN 3 MG TABLET PO SCH (21:07)
[2022-09-15] MEDS: ALBUTEROL 2.5 MG/3 ML NEB RESP TX SCH ×4 (00:53→19:26)
[2022-09-15] MEDS: SODIUM CHLOR 0.9% KCL 20 MEQ 20 MEQ/1,000 ML BAG IV SCH ×2 (01:47→19:07)
[2022-09-15] MEDS: MEROPENEM 500 MG in SODIUM CHLORIDE 0.9% 100 ML IV SCH ×2 (03:15→09:33)
[2022-09-15 05:35] LABS: Basophils % 0.2 % (0.0-0.8); Hematocrit 33.5 VOL% (42.0-52.0); Hemoglobin 10.9 GM/DL (14.0-18.0); Immature Granulocytes % 0.4 %; Immature Granulocytes Absolute 0.05 #; Lymphocytes # 0.9 10*3/uL (1.4-4.0); Lymphocytes % 7.3 % (21.2-54.2); Mean Corpuscular HGB Conc 32.5 GM/DL (32-36); Mean Corpuscular Volume 90.8 FL (87-102); Mean Platelet Volume 10.1 FL (9.6-12.0); Monocytes # 1.3 10*3/uL (0.11-0.8); Monocytes % 10.5 % (1.7-12.7); Neutrophils % 81.6 % (38.7-73.9); Platelet Count 127 T/CUMM (130-400); Red Blood Count 3.69 MC/CUMM (3.8-5.5); White Blood Count 12.3 T/CUMM (4-12)
[2022-09-15 05:50] LABS: Calcium 7.9 MG/DL (8.5-10.1); Osmolality,Calculated 278.5 MOS/KG (273-304); Potassium 2.9 MMOL/L (3.5-5.1)
[2022-09-15] MEDS: INSULIN REGULAR 100 UNIT/ML SUBCUT SCH ×4 (08:16→21:41)
[2022-09-15] MEDS ORDERED: POTASSIUM CHLORIDE 20 MEQ TABLET PO SCH (09:00)
[2022-09-15] MEDS: sitaGLIPtin 100 MG TABLET PO SCH (09:30)
[2022-09-15] MEDS: guaiFENesin/DM ER 600-30 MG TABLET PO SCH ×2 (09:30→21:35)
[2022-09-15] MEDS: ENOXAPARIN 40 MG/0.4 ML SYRINGE SUBCUT SCH (09:30)
[2022-09-15] MEDS: TAMSULOSIN 0.4 MG CAPSULE PO SCH ×2 (09:30→21:35)
[2022-09-15] MEDS: OMEGA 3 ACID ETHYL ESTERS 1 GM CAPSULE PO SCH (09:30)
[2022-09-15] MEDS: MULTIVITAMIN (CENTRUM) TABLET PO SCH (09:30)
[2022-09-15] MEDS: COLESTIPOL 1 GM TABLET PO SCH ×2 (09:30→23:11)
[2022-09-15] MEDS: levETIRAcetam 500 MG TABLET PO SCH ×2 (09:31→21:35)
[2022-09-15] MEDS: MAGNESIUM OXIDE 400 MG TABLET PO SCH (09:31)
[2022-09-15] MEDS: lisinopriL 10 MG TABLET PO SCH (09:31)
[2022-09-15] MEDS: PHENAZOPYRIDINE 95 MG TABLET PO SCH ×3 (09:32→19:07)
[2022-09-15] MEDS: ASPIRIN EC 81 MG TABLET PO SCH (09:32)
[2022-09-15] MEDS: CHOLECALCIFEROL 1,000 UNIT TABLET PO SCH (09:32)
[2022-09-15] MEDS: FOLIC ACID 1 MG TABLET PO SCH ×2 (09:32→21:35)
[2022-09-15] MEDS: CITALOPRAM 40 MG TABLET PO SCH (09:32)
[2022-09-15] MEDS: PHENobarbital 30 MG TABLET PO SCH ×4 (09:32→21:36)
[2022-09-15] MEDS: DOCUSATE SODIUM 100 MG CAPSULE PO SCH ×2 (09:32→21:36)
[2022-09-15] MEDS: PANTOPRAZOLE 40 MG TABLET PO SCH (10:36)
[2022-09-15] MEDS: IBUPROFEN 400 MG TABLET PO PRN (15:18)
[2022-09-15] MEDS: POTASSIUM CHLORIDE 20 MEQ TABLET PO SCH (21:35)
[2022-09-15] MEDS: MELATONIN 3 MG TABLET PO SCH (21:35)
[2022-09-16] MEDS: ALBUTEROL 2.5 MG/3 ML NEB RESP TX SCH ×4 (00:42→19:20)
[2022-09-16 05:25] LABS: Calcium 8.3 MG/DL (8.5-10.1); Osmolality,Calculated 281.3 MOS/KG (273-304); Potassium 3.5 MMOL/L (3.5-5.1)
[2022-09-16 05:45] LABS: Basophils % 0.3 % (0.0-0.8); Hematocrit 36.2 VOL% (42.0-52.0); Hemoglobin 12.2 GM/DL (14.0-18.0); Immature Granulocytes % 0.5 %; Immature Granulocytes Absolute 0.04 #; Lymphocytes # 0.9 10*3/uL (1.4-4.0); Lymphocytes % 11.1 % (21.2-54.2); Mean Corpuscular HGB Conc 33.7 GM/DL (32-36); Mean Corpuscular Volume 88.7 FL (87-102); Mean Platelet Volume 9.6 FL (9.6-12.0); Monocytes # 1.3 10*3/uL (0.11-0.8); Monocytes % 17.1 % (1.7-12.7); Platelet Count 162 T/CUMM (130-400); Red Blood Count 4.08 MC/CUMM (3.8-5.5); White Blood Count 7.9 T/CUMM (4-12)
[2022-09-16 06:10] LABS: Lymphocytes 17 % (20-55); Platelet Estimate Adequate; Total Cells Counted 100
[2022-09-16] MEDS: SODIUM CHLOR 0.9% KCL 20 MEQ 20 MEQ/1,000 ML BAG IV SCH ×2 (08:14→22:38)
[2022-09-16] MEDS: INSULIN REGULAR 100 UNIT/ML SUBCUT SCH ×4 (08:18→22:36)
[2022-09-16] MEDS: guaiFENesin/DM ER 600-30 MG TABLET PO SCH ×2 (09:11→21:41)
[2022-09-16] MEDS: lisinopriL 10 MG TABLET PO SCH (09:12)
[2022-09-16] MEDS: MULTIVITAMIN (CENTRUM) TABLET PO SCH (09:12)
[2022-09-16] MEDS: CITALOPRAM 40 MG TABLET PO SCH (09:12)
[2022-09-16] MEDS: MAGNESIUM OXIDE 400 MG TABLET PO SCH (09:12)
[2022-09-16] MEDS: CHOLECALCIFEROL 1,000 UNIT TABLET PO SCH (09:12)
[2022-09-16] MEDS: POTASSIUM CHLORIDE 20 MEQ TABLET PO SCH ×2 (09:12→21:41)
[2022-09-16] MEDS: PHENAZOPYRIDINE 95 MG TABLET PO SCH ×3 (09:12→16:24)
[2022-09-16] MEDS: COLESTIPOL 1 GM TABLET PO SCH (09:12)
[2022-09-16] MEDS: PANTOPRAZOLE 40 MG TABLET PO SCH (09:13)
[2022-09-16] MEDS: METOPROLOL SUCCINATE XL 25 MG TABLET PO SCH (09:13)
[2022-09-16] MEDS: PHENobarbital 30 MG TABLET PO SCH ×4 (09:13→21:41)
[2022-09-16] MEDS: OMEGA 3 ACID ETHYL ESTERS 1 GM CAPSULE PO SCH (09:13)
[2022-09-16] MEDS: sitaGLIPtin 100 MG TABLET PO SCH (09:13)
[2022-09-16] MEDS: TAMSULOSIN 0.4 MG CAPSULE PO SCH ×2 (09:13→21:41)
[2022-09-16] MEDS: ASPIRIN EC 81 MG TABLET PO SCH (09:13)
[2022-09-16] MEDS: levETIRAcetam 500 MG TABLET PO SCH ×2 (09:13→21:41)
[2022-09-16] MEDS: FOLIC ACID 1 MG TABLET PO SCH ×2 (09:13→21:42)
[2022-09-16] MEDS: ENOXAPARIN 40 MG/0.4 ML SYRINGE SUBCUT SCH (09:13)
[2022-09-16] MEDS: DOCUSATE SODIUM 100 MG CAPSULE PO SCH (09:14)
[2022-09-16] MEDS ORDERED: cefTRIAXone 2,000 MG in SODIUM CHLORIDE 0.9% 100 ML IV SCH (11:00)
[2022-09-16] MEDS: IBUPROFEN 400 MG TABLET PO PRN (16:24)
[2022-09-16] MEDS: CHOLESTYRAMINE 4 GM PACK PO SCH (21:41)
[2022-09-16] MEDS: MELATONIN 3 MG TABLET PO SCH (21:41)
[2022-09-16] MEDS: FINASTERIDE 5 MG TABLET PO SCH (21:41)
[2022-09-16] MEDS: CIPROFLOXACIN 500 MG TABLET PO SCH (21:42)
[2022-09-17] MEDS: ALBUTEROL 2.5 MG/3 ML NEB RESP TX SCH ×4 (00:21→19:47)
[2022-09-17 04:43] LABS: Basophils % 0.4 % (0.0-0.8); Hematocrit 36.2 VOL% (42.0-52.0); Hemoglobin 11.8 GM/DL (14.0-18.0); Immature Granulocytes % 0.6 %; Immature Granulocytes Absolute 0.05 #; Lymphocytes # 1.5 10*3/uL (1.4-4.0); Lymphocytes % 18.7 % (21.2-54.2); Mean Corpuscular HGB Conc 32.6 GM/DL (32-36); Mean Corpuscular Volume 88.5 FL (87-102); Mean Platelet Volume 9.8 FL (9.6-12.0); Monocytes # 1.4 10*3/uL (0.11-0.8); Monocytes % 17.2 % (1.7-12.7); Neutrophils % 63.1 % (38.7-73.9); Platelet Count 167 T/CUMM (130-400); Red Blood Count 4.09 MC/CUMM (3.8-5.5); Red Cell Distribution Width 12.9 % (9.3-17.3); White Blood Count 8.2 T/CUMM (4-12)
[2022-09-17 05:07] LABS: Calcium 8.2 MG/DL (8.5-10.1); Osmolality,Calculated 279.4 MOS/KG (273-304); Potassium 3.3 MMOL/L (3.5-5.1)
[2022-09-17 05:12] LABS: Lymphocytes 16 % (20-55); Platelet Estimate Adequate; Total Cells Counted 100
[2022-09-17] MEDS: ENOXAPARIN 40 MG/0.4 ML SYRINGE SUBCUT SCH (08:28)
[2022-09-17] MEDS: OMEGA 3 ACID ETHYL ESTERS 1 GM CAPSULE PO SCH (08:28)
[2022-09-17] MEDS: POTASSIUM CHLORIDE 20 MEQ TABLET PO SCH ×2 (08:28→20:04)
[2022-09-17] MEDS: ASPIRIN EC 81 MG TABLET PO SCH (08:28)
[2022-09-17] MEDS: PHENobarbital 30 MG TABLET PO SCH ×4 (08:28→20:04)
[2022-09-17] MEDS: CIPROFLOXACIN 500 MG TABLET PO SCH ×2 (08:28→20:03)
[2022-09-17] MEDS: PANTOPRAZOLE 40 MG TABLET PO SCH (08:28)
[2022-09-17] MEDS: CITALOPRAM 40 MG TABLET PO SCH (08:28)
[2022-09-17] MEDS: FOLIC ACID 1 MG TABLET PO SCH ×2 (08:28→20:04)
[2022-09-17] MEDS: TAMSULOSIN 0.4 MG CAPSULE PO SCH ×2 (08:28→20:04)
[2022-09-17] MEDS: PHENAZOPYRIDINE 95 MG TABLET PO SCH ×3 (08:28→16:55)
[2022-09-17] MEDS: CHOLECALCIFEROL 1,000 UNIT TABLET PO SCH (08:29)
[2022-09-17] MEDS: MULTIVITAMIN (CENTRUM) TABLET PO SCH (08:29)
[2022-09-17] MEDS: sitaGLIPtin 100 MG TABLET PO SCH (08:29)
[2022-09-17] MEDS: lisinopriL 10 MG TABLET PO SCH (08:29)
[2022-09-17] MEDS: levETIRAcetam 500 MG TABLET PO SCH ×2 (08:29→20:04)
[2022-09-17] MEDS: guaiFENesin/DM ER 600-30 MG TABLET PO SCH ×2 (08:29→20:03)
[2022-09-17] MEDS: CHOLESTYRAMINE 4 GM PACK PO SCH ×3 (08:29→21:16)
[2022-09-17] MEDS: MAGNESIUM OXIDE 400 MG TABLET PO SCH (08:29)
[2022-09-17] MEDS: INSULIN REGULAR 100 UNIT/ML SUBCUT SCH ×4 (09:33→20:51)
[2022-09-17] MEDS: SODIUM CHLOR 0.9% KCL 20 MEQ 20 MEQ/1,000 ML BAG IV SCH ×3 (09:33→20:51)
[2022-09-17] MEDS: FINASTERIDE 5 MG TABLET PO SCH (20:03)
[2022-09-17] MEDS: MELATONIN 3 MG TABLET PO SCH (20:04)
[2022-09-18] MEDS: ALBUTEROL 2.5 MG/3 ML NEB RESP TX SCH ×2 (01:07→06:54)
[2022-09-18 05:23] LABS: Basophils % 0.3 % (0.0-0.8); Hematocrit 35.1 VOL% (42.0-52.0); Hemoglobin 11.6 GM/DL (14.0-18.0); Immature Granulocytes % 0.7 %; Immature Granulocytes Absolute 0.05 #; Lymphocytes % 25.7 % (21.2-54.2); Mean Corpuscular Volume 89.1 FL (87-102); Mean Platelet Volume 9.9 FL (9.6-12.0); Monocytes # 1.1 10*3/uL (0.11-0.8); Neutrophils % 59.3 % (38.7-73.9); Platelet Count 214 T/CUMM (130-400); Red Blood Count 3.94 MC/CUMM (3.8-5.5); Red Cell Distribution Width 13.2 % (9.3-17.3); White Blood Count 7.6 T/CUMM (4-12)
[2022-09-18 05:48] LABS: Calcium 8.3 MG/DL (8.5-10.1); Osmolality,Calculated 278.4 MOS/KG (273-304); Potassium 3.5 MMOL/L (3.5-5.1)
[2022-09-18 05:52] LABS: Band Neutrophils 1 % (0-10); Eosinophils 1 % (0-10); Lymphocytes 19 % (20-55); Microcytosis Slight; Total Cells Counted 100
[2022-09-18 05:53] LABS: Platelet Estimate Normal
[2022-09-18] MEDS: CIPROFLOXACIN 500 MG TABLET PO SCH (08:08)
[2022-09-18] MEDS: ASPIRIN EC 81 MG TABLET PO SCH (08:08)
[2022-09-18] MEDS: PHENAZOPYRIDINE 95 MG TABLET PO SCH (08:08)
[2022-09-18] MEDS: PHENobarbital 30 MG TABLET PO SCH (08:08)
[2022-09-18] MEDS: guaiFENesin/DM ER 600-30 MG TABLET PO SCH (08:08)
[2022-09-18] MEDS: CITALOPRAM 40 MG TABLET PO SCH (08:08)
[2022-09-18] MEDS: POTASSIUM CHLORIDE 20 MEQ TABLET PO SCH (08:08)
[2022-09-18] MEDS: MULTIVITAMIN (CENTRUM) TABLET PO SCH (08:09)
[2022-09-18] MEDS: OMEGA 3 ACID ETHYL ESTERS 1 GM CAPSULE PO SCH (08:09)
[2022-09-18] MEDS: levETIRAcetam 500 MG TABLET PO SCH (08:09)
[2022-09-18] MEDS: CHOLECALCIFEROL 1,000 UNIT TABLET PO SCH (08:09)
[2022-09-18] MEDS: METOPROLOL SUCCINATE XL 25 MG TABLET PO SCH (08:09)
[2022-09-18] MEDS: lisinopriL 10 MG TABLET PO SCH (08:09)
[2022-09-18] MEDS: PANTOPRAZOLE 40 MG TABLET PO SCH (08:09)
[2022-09-18] MEDS: sitaGLIPtin 100 MG TABLET PO SCH (08:09)
[2022-09-18] MEDS: TAMSULOSIN 0.4 MG CAPSULE PO SCH (08:09)
[2022-09-18] MEDS: ENOXAPARIN 40 MG/0.4 ML SYRINGE SUBCUT SCH (08:10)
[2022-09-18] MEDS: FOLIC ACID 1 MG TABLET PO SCH (08:10)
[2022-09-18] MEDS: MAGNESIUM OXIDE 400 MG TABLET PO SCH (08:10)
[2022-09-18] MEDS: INSULIN REGULAR 100 UNIT/ML SUBCUT SCH ×2 (09:14→12:57)
[2022-09-18] MEDS: CHOLESTYRAMINE 4 GM PACK PO SCH (09:15)
[2022-09-18] MEDS ORDERED: CHOLESTYRAMINE 4 GM PACK PO PRN (11:28)
[2022-09-18 12:14] VITALS: BP 151/74
[2022-09-18] MEDS: SODIUM CHLOR 0.9% KCL 20 MEQ 20 MEQ/1,000 ML BAG IV SCH (12:57)
== END 2022-09-18 13:48 | disposition home health service (06) | DRG 728 ==
LOC: EDBD → EDUNIT# → N.ED 00:04 → N.EDINP 00:04 → SUATTDRO 03:08 → OBSVTOIN 03:08 → N.2E 03:37
PROVIDERS: ADMIT Hospitalist; ATTEND Hospitalist